=== PATIENT | male | born 1995 | race Two or more races ===

== ENCOUNTER 2024-04-05 15:02 | Emergency (ER) | payer OTHER ==
[~2024-04-05] VITALS: Ht 172.7 cm; Wt 105.5 kg
--- NOTE | 2024-04-05 15:29 | ED.PDOC ---
History of Present Illness HPI Comments 28 y.o male presents to the ED for an evaluation of flu like symptoms including: fever, chills, cold sweats, diarrhea, chest discomfort, and congestion that started 3 days ago. Patient reports symptoms worsened today, is only able to breath through his mouth due to congestion. Patient denies any leg swelling, SOB, or cough. NO medical, surgical history or allergies reported. Febrile at arrival, 102+. Chief Complaint: Flu like Time Seen by MD: 15:18 Reviewed Notes: Nurses Notes, Medications, Allergies Allergies: Coded Allergies: NO KNOWN ALLERGIES (Unverified , 04/05/24) Information Source: Patient Mode of Arrival: Ambulatory Severity: Moderate Timing: Days (3) Duration: Since onset Prehospital treatment: Treatment Past Medical History PAST MEDICAL HISTORY: Denies Surgical History: Denies all surgeries Family History Family History: Reviewed,noncontributory to illness Social History Smoker: Non-Smoker Alcohol: Denies ETOH Use Drugs: Denies Drug Use Lives In: Home Constitutional: reports: fever, sweats, weakness; denies: chills, diaphoresis, fatigue, malaise, others EENTM: denies: blurred vision, double vision, ear bleeding, ear discharge, ear drainage, ear pain, ear ringing, eye pain, eye redness, hearing loss, mouth pain, mouth swelling, nasal discharge, nose bleeding, nose congestion, nose pain, photophobia, tearing, throat pain, throat swelling, voice changes, others Respiratory: denies: cough, hemoptysis, orthopnea, SOB at rest, shortness of breath, SOB with excertion, stridor, wheezing, others Cardiovascular: reports: chest pain; denies: dizzy spells, diaphoresis, Dyspnea on exertion, edema, irregular heart beat, left arm pain, lightheadedness, palpitations, PND, syncope, others Gastrointestinal: reports: diarrhea, nausea, vomiting; denies: abdomen distended, abdominal pain, blood streaked bowels, constipated, dysphagia, difficulty swallowing, hematemesis, melena, poor appetite, poor fluid intake, rectal bleeding, rectal pain, others Genitourinary: denies: burning, dysuria, flank pain, frequency, hematuria, incontinence, penile discharge, penile sore, pain, testicle pain, testicle swelling, urgency, others Neurological: denies: dizziness, fainting, headache, left sided numbness, left sided weakness, numbness, paresthesia, pre-existing deficit, right sided numbness, right sided weakness, seizure, speech problems, tingling, tremors, weakness, others Musculoskeletal: denies: back pain, gout, joint pain, joint swelling, muscle pain, muscle stiffness, neck pain, others Integumetry: denies: bruises, change in color, change in hair/nails, dryness, laceration, lesions, lumps, rash, wounds, others Allergic/Immunocompromised: denies: Difficulty Healing, Frequent Infections, Hives, Itching, others Hematologic/Lymphatic: denies: anemia, blood clots, easy bleeding, easy bruising, swollen glands, others Endocrine: denies: excessive hunger, excessive sweating, excessive thirst, excessive urination, flushing, intolerance to cold, intolerance to heat, unexplained weight gain, unexplained weight loss, others Psychiatric: denies: anxiety, bipolar disorder, depression, hopeless, panic disorder, schizophrenia, sleepless, suicidal, others All Other Systems: Reviewed and Negative Physical Exam General Appearance: Moderate Distress (Pt. presents as a moderately ill 28 y/o male), Normal HEENT: TMs Normal, Other ([place]) Neck: Full Range of Motion, Non-Tender, Normal, Normal Inspection Respiratory: Chest Non-Tender, Lungs Clear, No Accessory Muscle Use, No Respiratory Distress, Normal Breath Sounds Cardiovascular: No Edema, No JVD, No Murmur, No Gallop, Normal Peripheral Pulses, Regular Rate/Rhythm Breast Exam: Deferred Gastrointestinal: No Organomegaly, Non Tender, No Pulsatile Mass, Normal Bowel Sounds, Soft Genitalia: Deferred Pelvic: Deferred Rectal: Deferred Extremities: No calf tenderness, Normal capillary refill, Normal inspection, Normal range of motion, Non-tender, No pedal edema Neurologic: Alert, 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 Was a procedure done?: No Differential Dx Considerations may include: Viral syndrome, Influenza, COVID, Dehydration, pneumonia X-Ray, Labs, Meds, VS Vital Signs Date Time Temp Pulse Resp B/P (MAP) Pulse Ox O2 Delivery O2 Flow Rate FiO2 04/05/24 15:58 102.2 04/05/24 15:53 102.2 104 20 144/93 (110) 98 102.2 04/05/24 15:53 104 20 98 Room Air* 0 21 04/05/24 15:46 20 96 Room Air* 0 21 04/05/24 15:14 98.6 104 18 145/91 (109) 95 Lab Test 04/05/24 15:35 Range/Units Influenza Type A Antigen Negative Negative Influenza Type B Antigen Negative Negative SARS-CoV-2 Antigen (Rapid) Negative NEGATIVE Current Medications Medications (Trade) Dose Ordered Sig/Yasemin Route Start Time Stop Time Status Last Admin Albuterol (Ventolin Medneb) 2.5 mg ONCE ONCE NEB 04/05/24 15:30 04/05/24 15:31 DC 04/05/24 15:45 Ipratropium [place] (Atrovent Medneb) 0.5 mg ONCE ONCE NEB 04/05/24 15:30 04/05/24 15:31 DC 04/05/24 15:44 Dexamethasone Sodium Phosphate (Decadron Injection) 10 mg ONCE ONCE IM 04/05/24 15:30 04/05/24 15:31 DC 04/05/24 15:48 Acetaminophen (Tylenol Tablet) 1,000 mg ONCE ONCE PO 04/05/24 16:00 04/05/24 16:01 DC 04/05/24 15:58 X-Ray, Labs, Meds, VS Comment Pt. states good response to treatment. All studies performed at the ED today were reviewed by me personally. Imaging studies were unremarkable for any acute pulmonary concerns. No consolidation noted. Swabs were unremarkable for Influ or COVID. Pt. appears to be suffering a viral URI. Time of 1ST Reevaluation: 16:53 Reevaluation 1ST: Improved Consultation: PCP Patient Education/Counseling: Diagnosis, Treatment, Prognosis Family Education/Counseling: Diagnosis, Treatment, No Family Present Departure 1 Departure Time of Disposition: 16:53 Impression: Primary Impression: Viral upper respiratory tract infection Disposition: 01 HOME / SELF CARE / HOMELESS Condition: Stable Additional Instructions: Medication as needed for symptomatic relief as well as good hydration and healthy nutrition throughout. e-Prescriptions Benzonatate (Benzonatate) 100 Mg Cap 1 CAP PO Q6HP PRN, #20 CAP Prov: JOHNNY MCCARTHY PAC 04/05/24 Albuterol Sulfate (Albuterol Sulfate Hfa) 108 Mcg/Act Aer 108 MCG IN Q4HP PRN, #1 AER Prov: JOHNNY MCCARTHY PAC 04/05/24 Ibuprofen Micronized (Ibuprofen) 800 Mg Tab 800 MG PO Q8HP PRN, #20 TAB Prov: JOHNNY MCCARTHY PAC 04/05/24 Acetaminophen (Acetaminophen) 500 Mg Tab 500 MG PO Q4HP PRN, #30 TAB Prov: JOHNNY MCCARTHY PAC 04/05/24 Discharged With: Self, Friend Critical Care Note Critical Care Time?: No Stability Stability form required: No I personally scribed for DEBORA IGLESIAS MD ([email or web address]) on 04/05/24 at 15:29. Electronically submitted by Marialuisa Cormier ([facility]). DEBORA IGLESIAS MD Apr 05, 2024 15:29 JOHNNY MCCARTHY PAC Apr 05, 2024 16:47
[2024-04-05] MEDS: IPRATROPIUM BROM 0.5 MG/2.5ML INH SOL NEB ONE (15:44)
[2024-04-05] MEDS: ALBUTEROL SULF 2.5 MG/0.5ML(0.5%) NEB SOLN NEB ONE (15:45)
[2024-04-05] MEDS: DexAMETHasone SOD PHOS 10MG/1ML VIAL INJ IM ONE (15:48)
--- NOTE | 2024-04-05 15:48 | DVH ---
XY CHEST TWO VIEWS ROUTINE CLINICAL HISTORY: SOB COMPARISON: None TECHNIQUE: Frontal and lateral view of the chest was obtained FINDINGS: Lines and Tubes: None Lungs: No focal consolidation. Pleura: No effusion. No pneumothorax. Cardiomediastinal contours: Unremarkable Bones: No acute osseous abnormality. IMPRESSION: No acute cardiopulmonary disease.
[2024-04-05 15:53] VITALS: BP 144/93; PULSE 104; RESP 20; O2SAT 98
[2024-04-05] MEDS: ACETAMINOPHEN 500 MG TAB PO ONE (15:58)
[2024-04-05 16:40] LABS: COVID19 ANTIGEN SOFIA FIA NEGATIVE (NEGATIVE)
[2024-04-05 16:41] LABS: Rapid Influenza A Negative (Negative); Rapid Influenza B Negative (Negative)
[2024-04-05 16:55] VITALS: TEMP 99.8
[2024-04-05] MEDS ORDERED: ALBU108A5 IN (16:55)
[2024-04-05] MEDS ORDERED: ACET500T58 PO (16:55)
[2024-04-05] MEDS ORDERED: IBUP-1455 PO (16:55)
[2024-04-05] MEDS ORDERED: BENZ100C97 PO (16:55)
== END 2024-04-05 17:17 | disposition home or self-care (01) ==
LOC: ER 15:02
DX: J06.9 Acute upper respiratory infection, unspecified (principal); B97.89 Other viral agents as the cause of diseases classified elsewhere; R07.89 Other chest pain; Z20.822 Contact with and (suspected) exposure to COVID-19
CPT/HCPCS: 36415; 71046; 87426; 87804; 94640; 96372; 99284; J1100

== ENCOUNTER 2024-04-07 21:34 | Emergency (ER) | payer OTHER ==
[~2024-04-07] VITALS: Ht 172.7 cm; Wt 103.7 kg
[~2024-04-07 21:34] MED LIST: ACET500T58 PO; ALBU108A5 IN; BENZ100C97 PO; IBUP-1455 PO
[2024-04-07 22:28] LABS: Basophils # (auto) 0 10 ^3/uL (0-0.2); Basophils % (auto) 0.4 % (0.0-2.0); Eosinophils # (auto) 0 10 ^3/uL (0-0.8); Eosinophils % (auto) 0.5 % (0.0-7.0); Hematocrit 41.7 % (41.0-53.0); Hemoglobin 14.4 g/dL (13.5-17.5); Lymphocytes # (auto) 2.4 10 ^3/uL (0.4-5.4); Lymphocytes % (auto) 24.7 % (10.0-50.0); Mean Corpuscular Hemoglobin 30.5 pg (28.0-32.0); Mean Corpuscular Hgb Conc. 34.6 g/dL (32.0-36.0); Mean Corpuscular Volume 88.3 fL (80.0-100.0); Monocytes # (auto) 0.8 10 ^3/uL (0-1.3); Monocytes % (auto) 8.4 % (0.0-12.0); Neutrophils # (auto) 6.3 10 ^3/uL (1.6-8.6); Nucleated Red Blood Cells % 0.1 %; Platelet Count (auto) 281 10^3/uL (140-450); Red Blood Cells 4.73 10^6/uL (4.5-5.90); Red Cell Distribution Width 13.5 % (11.8-14.3); White Blood Cell 9.5 10^3/uL (4.4-10.8)
[2024-04-07 22:38] LABS: Chloride 106 mmol/L (98-107)
[2024-04-07 22:39] LABS: Anion Gap 6 (5-15); Carbon Dioxide 29 mmol/L (20-31); Potassium 3.2 mmol/L (3.5-5.1); Sodium 141 mmol/L (136-145)
[2024-04-07 22:40] LABS: Calcium 9.8 mg/dL (8.7-10.4)
[2024-04-07 22:45] LABS: BUN/Creatinine Ratio 12.5 (10.0-20.0); Blood Urea Nitrogen 12 mg/dL (9-23); Glucose 112 mg/dL (74-106)
--- NOTE | 2024-04-07 22:47 | DVH ---
XY CHEST TWO VIEWS ROUTINE CLINICAL HISTORY: cough COMPARISON: XY CHEST TWO VIEWS ROUTINE on DOS: 04/05/24 TECHNIQUE: Frontal and lateral view of the chest was obtained FINDINGS: Lines and Tubes: None Lungs: No focal consolidation. Pleura: No effusion. No pneumothorax. Cardiomediastinal contours: Unremarkable Bones: No acute osseous abnormality. IMPRESSION: No acute cardiopulmonary disease.
[2024-04-07 23:00] VITALS: BP 131/76; PULSE 92; RESP 18; TEMP 97.9; O2SAT 96
[2024-04-07] MEDS ORDERED: ALBUAER3 IN (23:07)
[2024-04-07] MEDS ORDERED: AMOX875T4 PO (23:07)
--- NOTE | 2024-04-07 23:07 | ED.PDOC ---
SOB-HPI HPI Comments 28-year-old male presents to ER with complaints of cough x3 days. Patient reports that he has been experiencing a cough, congestion, sore throat, cold/night sweats, on/off shortness of breath and on/off body aches x3 days. States that he was seen and evaluated for his symptoms in ER here two days ago and diagnosed with a viral URI and has been taking his prescribed albuterol inhaler, prednisone and ibuprofen with slight relief. He reports 7/10 body ac hes pain, denying any other current pain. Patient also reports he had one episode of clear sputum today that appeared to have "streaks of blood" in it. Patient presents to ER ambulatory on arrival, with steady gait, in no distress, with vitals stable and denies any current shortness of breath. Denies chest pain, palpitations, nausea/vomiting, headache, dizziness, abdominal pain, known exposure to sick contacts, recent travel, changes in urination/BM or any further symptoms/complaints Chief Complaint: Flu like Time Seen by MD: 21:50 Primary Care Provider: UNKNOWN Reviewed notes: Nurses Notes, Medications, Allergies Information Source: Patient Mode of Arrival: Ambulatory Past Medical History PAST MEDICAL HISTORY: Denies Surgical History: Denies all surgeries Family History Family History: Unknown Social History Smoker: Other (NICOTINE VAPE) Alcohol: Denies ETOH Use Drugs: Denies Drug Use Lives In: Home Constitutional: reports: others (As stated in HPI) EENTM: reports: others (As stated in HPI) Respiratory: reports: others (As stated in HPI) Cardiovascular: denies: chest pain, dizzy spells, diaphoresis, Dyspnea on exertion, edema, irregular heart beat, left arm pain, lightheadedness, palpitations, PND, syncope, others Gastrointestinal: denies: abdomen distended, abdominal pain, blood streaked bowels, constipated, diarrhea, dysphagia, difficulty swallowing, hematemesis, melena, nausea, poor appetite, poor fluid intake, rectal bleeding, rectal pain, vomiting, others Genitourinary: denies: burning, dysuria, flank pain, frequency, hematuria, incontinence, penile discharge, penile sore, pain, testicle pain, testicle swelling, urgency, others Neurological: denies: dizziness, fainting, headache, left sided numbness, left sided weakness, numbness, paresthesia, pre-existing deficit, right sided numbness, right sided weakness, seizure, speech problems, tingling, tremors, weakness, others Musculoskeletal: denies: back pain, gout, joint pain, joint swelling, muscle pain, muscle stiffness, neck pain, others Integumetry: denies: bruises, change in color, change in hair/nails, dryness, laceration, lesions, lumps, rash, wounds, others Allergic/Immunocompromised: denies: Difficulty Healing, Frequent Infections, Hives, Itching, others Hematologic/Lymphatic: denies: anemia, blood clots, easy bleeding, easy bruising, swollen glands, others Endocrine: denies: excessive hunger, excessive sweating, excessive thirst, excessive urination, flushing, intolerance to cold, intolerance to heat, unexplained weight gain, unexplained weight loss, others Psychiatric: denies: anxiety, bipolar disorder, depression, hopeless, panic d isorder, schizophrenia, sleepless, suicidal, others Physical Exam General Appearance: No Apparent Distress, Obese HEENT: Normal ENT Inspection, PERRL/EOMI, Pharynx Normal, TMs Normal Neck: Full Range of Motion, Non-Tender, Normal Respiratory: Chest Non-Tender, Lungs Clear, No Accessory Muscle Use, No Respiratory Distress, Normal Breath Sounds Cardiovascular: No Murmur, No Gallop, Regular Rate/Rhythm Breast Exam: Deferred Gastrointestinal: NOT DONE Genitalia: Deferred Pelvic: Deferred Rectal: Deferred Extremities: Normal capillary refill, Normal range of motion Neurologic: Alert, 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 Was a procedure done?: No Sedation Sedation?: No Differential Dx Differential Diagnosis: Pneumonia, Pulmonary Embolism, Respiratory Distress, Pharyngitis X-Ray, Labs, Meds, VS Vital Signs Date Time Temp Pulse Resp B/P (MAP) Pulse Ox O2 Delivery O2 Flow Rate FiO2 04/07/24 21:50 97.9 99 18 130/73 (92) 95 Lab Test 04/07/24 22:21 Range/Units White Blood Count 9.5 4.4-10.8 10^3/uL Red Blood Count 4.73 4.5-5.90 10^6/uL Hemoglobin 14.4 13.5-17.5 g/dL Hematocrit 41.7 41.0-53.0 % Mean Corpuscular Volume 88.3 80.0-100.0 fL Mean Corpuscular Hemoglobin 30.5 28.0-32.0 pg Mean Corpuscular Hemoglobin Concent 34.6 32.0-36.0 g/dL Red Cell Distribution Width 13.5 11.8-14.3 % Platelet Count 281 140-450 10^3/uL Mean Platelet Volume 7.9 6.9-10.8 fL Neutrophils (%) (Auto) 66.0 37.0-80.0 % Lymphocytes (%) (Auto) 24.7 10.0-50.0 % Monocytes (%) (Auto) 8.4 0.0-12.0 % Eosinophils (%) (Auto) 0.5 0.0-7.0 % Basophils (%) (Auto) 0.4 0.0-2.0 % Neutrophils # (Auto) 6.3 1.6-8.6 10 ^3/uL Lymphocytes # (Auto) 2.4 0.4-5.4 10 ^3/uL Monocytes # (Auto) 0.8 0-1.3 10 ^3/uL Eosinophils # (Auto) 0 0-0.8 10 ^3/uL Basophils # (Auto) 0 0-0.2 10 ^3/uL Nucleated Red Blood Cells 0.1 % D-Dimer, Quantitative 0.27 0.0-0.49 mg/L FEU Sodium Level 141 136-145 mmol/L Potassium Level 3.2 L 3.5-5.1 mmol/L Chloride Level 106 98-107 mmol/L Carbon Dioxide Level 29 20-31 mmol/L Anion Gap 6 5-15 Blood Urea Nitrogen 12 9-23 mg/dL Creatinine 0.96 0.700-1.30 mg/dL Glomerular Filtration Rate Calc 110 >90 mL/min BUN/Creatinine Ratio 12.5 10.0-20.0 Serum Glucose 112 H 74-106 mg/dL Calcium Level 9.8 8.7-10.4 mg/dL Current Medications Medications (Trade) Dose Ordered Sig/Yasemin Route Start Time Stop Time Status Last Admin Methylprednisolone Sodium Succinate (Solu Medrol) 125 mg ONCE ONCE IM 04/07/24 23:15 04/07/24 23:17 DC 04/07/24 23:17 Ceftriaxone Sodium (Rocephin) 1,000 mg ONCE ONCE IM 04/07/24 23:15 04/07/24 23:17 DC 04/07/24 23:20 Potassium Chloride (Klor-Con Tablet) 20 meq ONCE ONCE PO 04/07/24 23:15 04/07/24 23:17 DC 04/07/24 23:16 PATIENT: ALEYDA GASTONCCT: [id number]: [id number] : 1995 LOC: ER ROOM / BED: / AGE / SEX: 28 / M ADM STATUS: REG ER SERVICE 15 ORDERING PHYSICIAN: ALEYDA ORONA PROCEDURE(s): CXR2 - CHEST TWO VIEWS ROUTINE REASON: cough ORDER NUMBER(s): [id number], ACCESSION NUMBER(s): [id number] XY CHEST TWO VIEWS ROUTINE CLINICAL HISTORY: cough COMPARISON: XY CHEST TWO VIEWS ROUTINE on DOS: 04/05/24 TECHNIQUE: Frontal and lateral view of the chest was obtained FINDINGS: Lines and Tubes: None Lungs: No focal consolidation. Pleura: No effusion. No pneumothorax. Cardiomediastinal contours: Unremarkable Bones: No acute osseous abnormality. IMPRESSION: No acute cardiopulmonary disease. ATED BY: MARI SOUSA DO DICTATED DATE/TIME: 04/07/242244 SIGNED BY: MARI SOUSA DO SIGNED DATE/TIME: 04/07/242244 CC: CBC reviewed-normal BMP reviewed-potassium 3.2 Chest x-ray reviewed D-dimer reviewed-normal Rocephin 1 g IM ordered Solu-Medrol 125 mg IM ordered Potassium 20 MEQ PO ordered Previous ER visit chart reviewed Patient reported improvement in symptoms, in no distress and denied any shortness of breath during ER visit/prior to discharge Advised to drink plenty of fluids Smoking cessation discussed and advised Advised to follow up with PCP in 1-2 days Patient verbalized understanding and agreeable with current plan of care Advised to return to ER immediately if symptoms worsen Time of 1ST Reevaluation: 22:44 Reevaluation 1ST: N/A Patient Education/Counseling: Diagnosis, Treatment, Prognosis, Need For Follow Up Family Education/Counseling: No Family Present Departure 1 Departure Time of Disposition: 23:02 Impression: Primary Impression: Upper respiratory infection Qualified Codes: J06.9 - Acute upper respiratory infection, unspecified Disposition: 01 HOME / SELF CARE / HOMELESS Condition: Stable e-Prescriptions Albuterol Sulfate (VENTOLIN MDI) 90 Mcg Ih 2 PUFF IN Q6HPRN, #1 INH 0 Refills Prov: ALEYDA ORONA 04/07/24 Amoxicillin & Pot Clavulanate (Amoxicillin/Potassium Cla) 875 Mg Tab 1 TAB PO BID for 7 Days, #14 TAB 0 Refills Prov: ALEYDA ORONA 04/07/24 Discharged With: Self Critical Care Note Critical Care Time?: No Stability Stability form required: No Heart Score Heart Score: Heart Score Response (Comments) Value History N/A 0 EKG N/A 0 Age N/A 0 Risk Factors N/A 0 Troponin N/A 0 Total 0 ALEYDA ORONA Apr 07, 2024 23:07
[2024-04-07] MEDS: POTASSIUM CHL 20 Meq TABLET PO ONE (23:16)
[2024-04-07] MEDS: methylPREDNISolone SOD SUCC 125 MG/2 ML VL IM ONE (23:17)
[2024-04-07] MEDS: cefTRIAXone SOD 1,000 MG VL IM ONE (23:20)
== END 2024-04-07 23:47 | disposition home or self-care (01) ==
LOC: ER 21:34
DX: J06.9 Acute upper respiratory infection, unspecified (principal)
CPT/HCPCS: 36415; 71046; 80048; 85025; 85379; 96372